=== PATIENT | male | born 1990 | race Two or more races ===

== ENCOUNTER → 2022-03-23 | Emergency (ER) | payer SELFPAY | END | disposition left against medical advice (07) | LOC: ER 22:14 | DX: H57.11 Ocular pain, right eye (principal); Z53.21 Procedure and treatment not carried out due to patient leaving prior to being seen by health care provider ==

== ENCOUNTER 2023-09-22 09:23 | Emergency (ER) | payer MEDICAID, OTHER ==
[~2023-09-22] VITALS: Ht 185.4 cm; Wt 102.1 kg
[2023-09-22 12:40] VITALS: BP 115/73; PULSE 68; RESP 18; TEMP 98.9; O2SAT 98
[2023-09-22] MEDS: cefTRIAXone 2GM/50ML D5W 50 ML IV ONE (13:01)
== END 2023-09-22 12:56 | disposition left against medical advice (07) ==
LOC: ER 09:23
DX: L03.213 Periorbital cellulitis (principal); H00.031 Abscess of right upper eyelid
CPT/HCPCS: 70486